=== PATIENT | male | born 1960 | race African-American/Black ===

== ENCOUNTER → 2023-10-23 | Outpatient (CLI) | payer OTHER | LOC: M RAD 08:08 | PROVIDERS: ATTEND Physician Assistant Medical | DX: Z87.891 Personal history of nicotine dependence (principal) ==

== ENCOUNTER 2023-11-06 09:43 | Day surgery (SDC) | payer OTHER ==
[~2023-11-06] VITALS: Ht 185.4 cm; Wt 119.8 kg
[~2023-11-06 09:43] MED LIST: BSS with VANC/TOB/EPI for EYE CASES IR ONE; CYCLOPENTOLATE 1% OPHTH SOLN 2ML BTL OD SCH; DORZ2SOL5; HYDR12.55 PO; LATA1DRO; MIDAZOLAM INJ 2MG/2ML VIAL As Ordered ONE; PHENYLEPHRINE 10% OPHTH SOL 5ML OD PRN; TROPICAMIDE 1% OPHTH SOLN 15ML OD SCH; VITA200016 PO; fentaNYL 100 MCG/2 ML INJECTION As Ordered ONE
[2023-11-06] MEDS ORDERED: ESSETAB4 PO (10:56)
[2023-11-06] MEDS: ATROPINE SULFATE 1% OPHTH SOLN 2ML BTL OD SCH (11:01)
[2023-11-06] MEDS: OFLOXACIN 0.3 % (OCUFLOX) OPTH SOL 5ML OD ONE (11:01)
[2023-11-06] MEDS: LIDOCAINE 3.5 % 1ML OPHTH TOPICAL GEL OU ONE (11:01)
[2023-11-06] MEDS: PHENYLEPHRINE 2.5% OPHTH SOL 2ML OD SCH (11:01)
[2023-11-06] MEDS: BSS IRRIG/VANCO(10MG)/TOBRA(5MG)/EPINEPH(1:1000-0.5CC)500ML BAG-ORONLY As Ordered ONE (11:53)
[2023-11-06] MEDS: LIDOCAINE 1% SDV 5ML VIAL As Ordered ONE (11:53)
[2023-11-06] MEDS: CEFUROXIME 1MG/0.1ML INTRACAMERAL INJ As Ordered ONE (11:58)
[2023-11-06 12:10] VITALS: BP 150/96; TEMP 97.2; O2SAT 98
== END 2023-11-06 12:40 | disposition home or self-care (01) ==
LOC: M SDC 09:43
PROVIDERS: ATTEND Ophthalmology
DX: H25.11 Age-related nuclear cataract, right eye (principal); H40.811 Glaucoma with increased episcleral venous pressure, right eye; I10 Essential (primary) hypertension; G47.33 Obstructive sleep apnea (adult) (pediatric); Z79.899 Other long term (current) drug therapy; Z87.891 Personal history of nicotine dependence
CPT/HCPCS: 66987; C1783; J0697; J2250; J3010; V2632

== ENCOUNTER 2023-11-13 08:53 | Day surgery (SDC) | payer OTHER ==
[~2023-11-13] VITALS: Ht 185.4 cm; Wt 121.1 kg
[~2023-11-13 08:53] MED LIST changes: -BSS with VANC/TOB/EPI for EYE CASES IR ONE; -CYCLOPENTOLATE 1% OPHTH SOLN 2ML BTL OD SCH; +ESSETAB4 PO; -PHENYLEPHRINE 10% OPHTH SOL 5ML OD PRN; +PHENYLEPHRINE 10% OPHTH SOL 5ML OS PRN; -TROPICAMIDE 1% OPHTH SOLN 15ML OD SCH
[2023-11-13] MEDS: OFLOXACIN 0.3 % (OCUFLOX) OPTH SOL 5ML OS ONE (09:15)
[2023-11-13] MEDS: LIDOCAINE 3.5 % 1ML OPHTH TOPICAL GEL OU ONE (09:15)
[2023-11-13] MEDS: PHENYLEPHRINE 2.5% OPHTH SOL 2ML OS SCH (09:16)
[2023-11-13] MEDS: ATROPINE SULFATE 1% OPHTH SOLN 2ML BTL OS SCH (09:16)
[2023-11-13] MEDS: TROPICAMIDE 1% OPHTH SOLN 15ML OS SCH (09:16)
[2023-11-13] MEDS: CEFUROXIME 1MG/0.1ML INTRACAMERAL INJ As Ordered ONE (10:07)
[2023-11-13] MEDS: BSS IRRIG/VANCO(10MG)/TOBRA(5MG)/EPINEPH(1:1000-0.5CC)500ML BAG-ORONLY As Ordered ONE (10:07)
[2023-11-13] MEDS: LIDOCAINE 1% SDV 5ML VIAL As Ordered ONE (10:07)
[2023-11-13] MEDS: PROVISC 10 MG/ML 0.85ML SYRINGE As Ordered ONE (10:15)
[2023-11-13 10:25] VITALS: BP 133/88; TEMP 97.1; O2SAT 98
== END 2023-11-13 10:36 | disposition home or self-care (01) ==
LOC: M SDC 08:53
PROVIDERS: ATTEND Ophthalmology
DX: H25.12 Age-related nuclear cataract, left eye (principal); H40.812 Glaucoma with increased episcleral venous pressure, left eye; I10 Essential (primary) hypertension; G47.33 Obstructive sleep apnea (adult) (pediatric); Z79.899 Other long term (current) drug therapy; Z87.891 Personal history of nicotine dependence
CPT/HCPCS: 66989; A4649; C1783; J0697; J2250; J3010; V2632

== ENCOUNTER 2024-04-05 09:41 | Emergency (ER) | payer OTHER ==
[~2024-04-05] VITALS: Ht 185.4 cm; Wt 120.5 kg
[~2024-04-05 09:41] MED LIST changes: -MIDAZOLAM INJ 2MG/2ML VIAL As Ordered ONE; -PHENYLEPHRINE 10% OPHTH SOL 5ML OS PRN; -fentaNYL 100 MCG/2 ML INJECTION As Ordered ONE
[2024-04-05 10:29] LABS: BASO # 0.1 10^3/uL (0.0-0.2); EOS # 0.2 10^3/uL (0.0-0.5); EOS % 2.9 % (0.0-3.0); HEMATOCRIT 40.8 % (42.0-52.0); HEMOGLOBIN 14.4 g/dl (13.5-17.5); LYMPH # 1.9 10^3/uL (1.5-5.0); LYMPH % 36.5 % (24.0-44.0); MEAN CORPUSCULAR HEMOGLOBIN 32.1 pg (27.0-33.0); MEAN CORPUSCULAR HGB CONC 35.3 g/dl (32.0-36.5); MEAN CORPUSCULAR VOLUME 91.1 fl (80.0-96.0); MONO # 0.4 10^3/uL (0.0-0.8); MONO % 8.4 % (2.0-8.0); NEUTROPHILS # 2.6 10^3/uL (1.5-8.5); NEUTROPHILS % 50.8 % (36.0-66.0); PLATELET COUNT, AUTOMATED 175 10^3/uL (150-450); RED BLOOD COUNT 4.48 10^6/uL (4.30-6.10); WHITE BLOOD COUNT 5.1 10^3/uL (4.0-10.0)
[2024-04-05 10:42] LABS: INR 1.08; PARTIAL THROMBOPLASTIN TIME 28.9 SECONDS (24.8-34.2); PROTHROMBIN TIME 13.7 SECONDS (12.5-14.5)
[2024-04-05 11:09] LABS: LIPASE 27 U/L (12-53)
[2024-04-05 11:10] LABS: CPK CREATINE PHOSPHOKINASE 95 U/L (46-171)
[2024-04-05 11:11] LABS: ALBUMIN 3.5 G/DL (3.2-5.2); ALKALINE PHOSPHATASE 83 U/L (46-116); ALT/SGPT 23 U/L (7.0-40); AST/SGOT 16 U/L (<34); BILIRUBIN,DIRECT 0.2 MG/DL (<0.4); BILIRUBIN,TOTAL 0.5 MG/DL (0.3-1.2); BLOOD UREA NITROGEN 15 MG/DL (9-23); CALCIUM LEVEL 8.5 MG/DL (8.3-10.6); CARBON DIOXIDE LEVEL 27 MMOL/L (20-31); CHLORIDE LEVEL 109 MMOL/L (98-107); CK-MB VALUE MASS < 1.0 NG/ML (<3.6); CREATININE FOR GFR 1.02 MG/DL (0.70-1.30); GLOMERULAR FILTRATION RATE > 60.0 (>49); GLUCOSE, FASTING 100 MG/DL (74-106); MB/CK RELATIVE INDEX 1.05 (< OR =4); POTASSIUM SERUM 4.1 MMOL/L (3.5-5.1); SODIUM LEVEL 138 MMOL/L (136-145); TOTAL PROTEIN 6.4 G/DL (5.7-8.2)
[2024-04-05 11:13] LABS: THYROID STIMULATING HORMONE 1.758 uIU/ML (0.55-4.78)
[2024-04-05] MEDS ORDERED: ISOVUE-370 76% 100ML VIAL As Ordered ONE (11:55)
[2024-04-05 13:15] VITALS: O2SAT 100
[2024-04-05 13:43] VITALS: BP 136/85; TEMP 98.2
== END 2024-04-05 13:45 | disposition home or self-care (01) ==
LOC: EDBD 09:41 → M ED 09:41
DX: R07.9 Chest pain, unspecified (principal); J06.9 Acute upper respiratory infection, unspecified; J98.11 Atelectasis; D14.30 Benign neoplasm of unspecified bronchus and lung; I10 Essential (primary) hypertension; F43.10 Post-traumatic stress disorder, unspecified; Z79.899 Other long term (current) drug therapy
CPT/HCPCS: 36415; 71045; 71275; 80048; 80076; 82550; 82553; 83690; 83880; 84443; 84484; 85025; 85610; 85730; 87486; 87581; 87633; 87798; 93005; 93041; 94760; 99285; Q9967

== ENCOUNTER → 2024-08-05 | Outpatient (REF) | LOC: M PLAIMG 10:56 | PROVIDERS: ATTEND Internal Medicine | DX: Z01.89 Encounter for other specified special examinations (principal) ==

== ENCOUNTER → 2025-01-03 | Outpatient (CLI) | payer OTHER | LOC: M SOG 07:08 | PROVIDERS: ATTEND Physician Assistant | DX: M25.562 Pain in left knee (principal) ==